=== PATIENT | female | born 1995 | race Caucasian/White ===

== ENCOUNTER 2019-11-18 10:20 | Outpatient (CLI) | payer OTHER, SELFPAY ==
[2019-11-18 10:35] VITALS: BP 123/73; PULSE 81; TEMP 37.1; O2SAT 98
[2019-11-18 10:37] VITALS: BP 123/73; PULSE 81
[2019-11-18 10:50] VITALS: BMI 29.3
[2019-11-18 11:49] LABS: ROM Internal Control Test YES-OK TO RESULT pt. (Internal QC); ROM Patient Test Negative (Negative)
--- NOTE | 2019-11-18 13:30 | OB.TRI.NOTE ---
History of Present Illness Date of Service: 11/18/19 Was patient seen by the physician?: No Reason For Visit: RULE OUT SROM Final GADIEL: 11/15/19 Gestational age: 40 Weeks and 3 Days Allergies No Known Allergies Allergy (Verified 11/18/19 10:51) Laboratory Studies: Laboratory Tests 11/18/19 Range/Units 10:50 Vag Amniotic Fld Detect Negative (Negative) Physical Exam Vitals: Vital Signs Temp Pulse BP Pulse Ox 98.8 F 81 123/73 H 98 11/18/19 10:35 11/18/19 10:37 11/18/19 10:37 11/18/19 10:35 NST - FHR Rate Baby A Baseline: 130 Variability:: Moderate Accelerations:: 15 x 15 Decelerations:: Variable NST Reactive:: Yes Uterine Activity:: Irregular Impression/Plan Reactive NST for false labor
== END 2019-11-18 12:25 | disposition home or self-care (01) ==
LOC: WPOUT 10:29 → WP 10:30
PROVIDERS: Visit Provider Obstetrics & Gynecology
DX: O47.03 False labor before 37 completed weeks of gestation, third trimester (principal); Z3A.40 40 weeks gestation of pregnancy
CPT/HCPCS: 59025; 59050; 84112; 99218; G0378

== ENCOUNTER 2019-11-20 11:35 | Inpatient (IN) | payer OTHER, SELFPAY ==
[2019-11-20] VITALS (52 sets, daily range): BP systolic 91–153; BP diastolic 42–89; PULSE 70–112; RESP 15–20; TEMP 36.6–37.4; O2SAT 84–100; BMI 28.3
[2019-11-20] MEDS: Lactated Ringers 1,000 ML 200 ML IV ×2 (12:00→17:01)
[2019-11-20 12:12] LABS: Absolute Lymphocyte Count 1.32 X10^3/uL (0.83-4.51); Absolute Neutrophil Count 9.5 X10^3/uL (2.0-7.7); Basophil# 0.04 X10^3/uL; Basophil% 0.3 % (0-1); Eosinophil# 0.14 X10^3/uL; Eosinophils% 1.2 % (0-5); Hematocrit 45.3 % (37-47); Hemoglobin 15.2 g/dL (12.0-15.0); Lymphocyte # 1.32 X10^3/ul (4.0); Lymphocyte % 11.2 % (19-41); Mean Corp Hgb Conc 33.6 g/dL (32-36); Mean Corpuscular Hgb 30.7 pg (27.0-32.0); Mean Corpuscular Volume 91.5 fL (81-99); Mean Platelet Vol. 11.9 fl (6.2-12.0); Monocyte# 0.71 X10^3/uL; NRBC Flagged by Analyzer 0 % (0-5); Neutrophil # 9.49 X10^3/uL (2.7-7.7); Neutrophil % 80.6 % (47-70); Platelet Count 171 K/mm3 (150-450); RBC Distribution Width CV 14.5 % (11.6-14.6); RBC Distribution Width SD 48.4 fl (35.1-43.9); Red Blood Count 4.95 M/mm3 (4.2-5.4); White Blood Count 11.8 K/mm3 (4.4-11.0)
--- NOTE | 2019-11-20 13:46 | HP.PCM_ITS ---
- Problem List (1) Spontaneous onset of labor Status: Acute (2) 40 weeks gestation of Status: Acute History Date of Admission: 11/20/19 Final GADIEL: 11/14/19 Final GADIEL Source: US <20 weeks Gestational age: 40 Weeks and 6 Days History of this : This is a 24 year-old, G [1], P [0], at 40.6 weeks gestation that was sent over to labor and delivery from office for spontaneous labor. Patient was checked in office and was found to be 8/90/-1 with bulging membranes. Allergies No Known Allergies Allergy (Verified 11/20/19 12:06) Home Medications: Home Medications L.acidoph,Paracasei, B.lactis [Probiotic] 1 ea PO DAILY 11/18/19 [place]-3 Fatty Acids/Fish Oil [[place] 3 1,000 mg Softgel] 1 ea PO DAILY 11/18/19 Vits [Prenatabs FA] 1 tab PO DAILY 11/18/19 Smoking Status: Never smoker Substance Use Type: Sleep Aides NST - FHR Rate Baby A Baseline: 135 Variability:: Moderate Accelerations:: 15 x 15 Decelerations:: None FHR Category:: Category I Uterine Activity:: Contractions every 2-5 minutes and palpate moderate History Past Pregnancies: Past Pregnancies Delivery Date Name GA/ Weeks Outcome Route Wt Infant Sex Labor Length Anesthesia Delivery Location Provider FOB Labs: B positive Rubella - Immune HB neg RPR- no reactive HIV negative GC/CT negative 1 hour GCT normal Expected Infant Delivery Method: Spontaneous Vaginal Review of Systems Constitutional: Denies: Anorexia Eyes: Denies: Blurred vision HEENT: Denies: Head Aches Cardiovascular: Denies: Chest Pain Respiratory: Denies: Cough, Shortness of Breath Gastrointestinal: Denies: Abdominal Pain Physical Exam Vitals: Vital Signs Temp Pulse BP 98.7 F 70 112/80 11/20/19 12:38 11/20/19 13:31 11/20/19 13:31 General: Alert, Cooperative Lungs: Normal air movement Abdomen: Soft, Non Tender Extremities:: No edema Neurological: Cranial nerves II-XII grossly intact Estimated gestational size: Appropriate for gestational size Presentation: Cephalic Cervix Dilation (cm): 8 Station: -1 - Bulging membranes Effacement (%): 90 Assessment/Plan All Active Problems Spontaneous onset of labor (Acute) 40 weeks gestation of (Acute) This is a 24 year-old, G [1], P [0], at 40.6 weeks gestational age in active labor. A: Active labor Category 1 tracing GBS negative P: Admit to labor and delivery Routine labs - GBS negatvie IV fluids per protocol Epidural for pain relief if desires A.R.O.M Declines LARC COVID 19 rapid screening to be completed Dr. Rockwell notified of plan of care and is collaborative physician
--- NOTE | 2019-11-20 14:02 | PCM.PN.BLA ---
Progress Note Patient seen at bedside. Breathing well through contractions. Discussed plan of care with her and . Several questions asked about timeline and what to expect. Receptive to education. Unsure if wants epidural at this time due to being 8cm. Patient wishes to have water broken at this time and consents to procedure. A.R.O.M for large amount of meconium fluid with particulate. CE- 8/90/-1 Category 1 tracing A/P 40.6 weeks gestation Spontaneous term labor GBS negative Continue present plan of care- anticipate . STROKE Vital Signs/Narrative: Vital Signs Temp Pulse BP 11/20/19 13:52 74 129/86 H 11/20/19 13:31 70 112/80 11/20/19 12:39 98.6 F 11/20/19 12:38 98.7 F
[2019-11-20] MEDS: Oxytocin 30 units/NS 500 ml 30 UNITS/500 ML IV.SOLN IV (14:50)
[2019-11-20] MEDS: Lactated Ringers 500 ML 999 ML IV (16:30)
[2019-11-20] MEDS: Sodium Citrate/Citric Acid 30 ML UDC PO (18:15)
--- NOTE | 2019-11-20 18:22 | PCM.PN.BLA ---
Progress Note pt seen at bedside and evaluated. Patient is 8 cm 80% effaced and -2 station and has been this exam since approximately 10:40 AM. We have done interventions with artificial rupture membranes, Pitocin, position changes most recently epidural with placement IUPC and all have failed to progress dilation. Patient and were counseled on primary for arrest of dilation 8 cm. After all their questions were answered they agreed to proceed with the surgery. Ancef 2 g and azithromycin 500 mg preoperative antibiotics were ordered. They were counseled on the risk benefits of performing the section including but not limited to bleeding, infection, injury to pelvic structures. OR team notified and mobilized. STROKE Vital Signs/Narrative: Vital Signs Pulse BP Pulse Ox 11/20/19 18:08 104 H 105/57 L 11/20/19 18:05 109 H 99 11/20/19 18:03 99 123/73 H 11/20/19 18:00 89 99 11/20/19 17:58 101 H 118/70 11/20/19 17:55 89 99 11/20/19 17:52 100 107/70 11/20/19 17:50 101 H 99 11/20/19 17:47 90 106/72 11/20/19 17:45 91 99 11/20/19 17:43 101 H 108/75 11/20/19 17:40 91 98 11/20/19 17:38 95 91 11/20/19 17:35 97 100 11/20/19 17:33 93 109/70 11/20/19 17:30 101 H 99 11/20/19 17:28 111 H 107/70 11/20/19 17:25 102 H 99 11/20/19 17:22 100 107/64 11/20/19 17:20 96 98 11/20/19 17:18 98 109/67 11/20/19 17:15 102 H 121/72 H 99 11/20/19 17:10 109 H 100 11/20/19 17:08 96 106/67 11/20/19 17:05 95 100 11/20/19 17:03 100 119/74 92 11/20/19 17:00 95 98 11/20/19 16:59 105 H 153/89 H 11/20/19 16:52 92 108/70 11/20/19 16:11 85 126/69 H 11/20/19 15:07 88 108/70
--- NOTE | 2019-11-20 18:26 | OP.PCM_ITS ---
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 She was prepped and draped in the normal sterile fashion. Anesthesia was found to be adequate. At this time a Pfannenstiel skin incision was made with a knife was carried down to the underlying layer of the fascia. The fascial incision was then extended laterally using curved Najera scissor. Attenion was then turned to the superior aspect of the fascial edge was grasped with 2 straight Amado clamps tented up and the rectus muscle dissected off sharply using curved Najera scissor. Attention was then turned to the inferior aspect where again [place] clamps were placed in the rectus muscles were tented up and the fascia was dissected off sharply using the curved Najera scissor. Rectus muscles were then in the midline bluntly and peritoneum was entered bluntly. Gentle opposing traction was placed. At this time the vesicouterine peritoneum was identified. Scalpel was used to make a uterine incision in a low transverse fashion. The uterus was then entered bluntly gentle opposing traction was placed to extend this incision. 's head was brought to the uterine incision was delivered atraumatically. Delayed cord clamping- Cord was clamped and cut infant was handed to the waiting nursery team. The Placenta was removed from the uterus. The uterus was then removed from the abdominal cavity. The uterus was cleared of all clots and debris using a lap. At this time the uterine incision was reapproximated using #1 Vicryl in a running locked fashion. Hemostasis was appreciated. Posterior cul-de-sac was then cleared of all clots and debris. Uterus was placed back in the abdominal cavity. Gutters were cleared of all clots and debris. Uterine incision was reevaluated and noted to be of excellent hemostasis. At this time the peritoneum was grasped with Kellys reapproximated using #2 Vicryl suture in a running fashion. Muscles then reapproximated using #2 Vicryl in a interrupted mattress suture fashion. Fascia was then reapproximated using #1 Vicryl in a running fashion. Subcu layer was reapproximated with #2 0 plain gut suture in an interrupted fashion. Subcu layer was closed using 4-0 Monocryl in a Tristen needle in a subcu fashion. Dry sterile dressing was applied. Instrument lap needle count correct ?2. Anticipated normal postoperative course. Amniotic Membrane Rupture Type: Artificial Amniotic Fluid Description: Thick meconium Placenta Disposition: [facility] Drain: Lora to straight drain Cord Entanglement: None Cord Vessel Description: 3 Vessels Esitmated Blood Loss (ml): 750 Gender: Female (1 minute): 8 (5 minute): 8 Delayed cord clamping: Yes Antibiotic Given: Ancef 2 grams IV x1, Zithromax 500 mg/5 mL X1 Pt instructed on risks of surgery: Bleeding, Anesthesia Risks, Infection, Injury to surrounding structure(s) including bowel and bladder - Admit VTE Documentation VTE Present on Admission: Yes VTE Mechan Device Prophylaxis: SCD's VTE Pharm Prophylaxis ordered?: No
[2019-11-20] MEDS: Cefazolin 2 GM in 0.9% Normal Saline 100 ML IV (18:40)
[2019-11-20] MEDS: Methylergonovine 0.2 MG/ML Ampul IM (19:32)
[2019-11-20] MEDS: Oxytocin 30 units/NS 500 ml 30 UNITS/500 ML IV.SOLN 167 UNITS IV (19:35)
[2019-11-20] MEDS: DiphenhydrAMINE 25 MG Capsule PO (21:31)
[2019-11-20] MEDS: Lactated Ringers 1,000 ML 100 ML IV (22:47)
[2019-11-21] VITALS (15 sets, daily range): BP systolic 102–114; BP diastolic 49–76; PULSE 94–196; RESP 16–20; TEMP 36.2–37; O2SAT 97–98
[2019-11-21] MEDS: Ketorolac 30 MG/ML Syringe IV ×4 (01:22→18:32)
[2019-11-21] MEDS: DiphenhydrAMINE 25 MG Capsule PO ×2 (04:03→10:23)
[2019-11-21 06:11] LABS: Hematocrit 29.2 % (37-47); Hemoglobin 9.6 g/dL (12.0-15.0); Mean Corp Hgb Conc 32.9 g/dL (32-36); Mean Corpuscular Hgb 30.6 pg (27.0-32.0); Mean Platelet Vol. 11.5 fl (6.2-12.0); Platelet Count 141 K/mm3 (150-450); RBC Distribution Width CV 14.4 % (11.6-14.6); Red Blood Count 3.14 M/mm3 (4.2-5.4); White Blood Count 11.3 K/mm3 (4.4-11.0)
--- NOTE | 2019-11-21 08:02 | PN.OBGYN_ITS ---
Patient Problems: Active and Suspected Problems Spontaneous onset of labor (Acute) 40 weeks gestation of (Acute) Subjective: Seen at bedside, doing well. Breast-feeding going well. Patient reports pain is controlled. Was up to walk a little bit this morning mild dizziness. She denies any chest pain, shortness of breath. No dizziness while laying in bed. Tolerating crackers - Physical Exam Vitals/I&O's: Vital Signs Temp Pulse Resp BP Pulse Ox 98.4 F 94 18 102/66 98 11/21/19 03:51 11/21/19 05:45 11/21/19 05:45 11/21/19 03:51 11/21/19 05:45 Oxygen Delivery Method Room Air Weight: 63.503 kg Body Mass Index (BMI) 28.3 Intake and Output for Last 24 Hours 11/19/19 11/20/19 11/21/19 23:59 23:59 23:59 Intake Total 2918.34 / 2918.34 Output Total 400 / 400 400 / 400 Balance 2518.34 / 2518.34 -400 / -400 General: Alert, Oriented x3 Abdomen: Soft, Non-Distended, - - fundus firm, dressing dry and intact Neurological: Cranial nerves II-XII grossly intact Laboratory Results 11/20/19 12:00: WBC 11.8 H, RBC 4.95, Hgb 15.2 H, Hct 45.3, MCV 91.5, MCH 30.7, MCHC 33.6, RDW Std Deviation 48.4 H, RDW Coeff of Filemon 14.5, Plt Count 171, MPV 11.9, Immature Gran % (Auto) 0.700, Neut % (Auto) 80.6 H, Lymph % (Auto) 11.2 L, Hendricks % (Auto) 6.0, Eos % (Auto) 1.2, Baso % (Auto) 0.3, Absolute Neuts (auto) 9.5 H, Absolute Lymphs (auto) 1.32, Nucleated RBC % 0 11/20/19 12:00: Blood Type B POSITIVE, Antibody Screen NEGATIVE 11/20/19 12:50: COVID-19 (KRISTEN) Not Detected 11/21/19 05:50: WBC 11.3 H, RBC 3.14 L, Hgb 9.6 L, Hct 29.2 L, MCV 93.0, MCH 30.6, MCHC 32.9, RDW Std Deviation 49.0 H, RDW Coeff of Filemon 14.4, Plt Count 141 L, MPV 11.5 Current Medications Acetaminophen (Tylenol) 1,000 mg PO Q8H PRN PRN Reason: Pain Score 1-3/10 Bisacodyl (Dulcolax) 10 mg RECTAL UD PRN PRN Reason: If no BM Diphenhydramine HCl (Benadryl) 25 mg PO Q6H PRN PRN PRN Reason: ITCHING Stop: 11/21/19 21:07 Last Admin: 11/21/19 04:03 Dose: 25 mg Documented by: Hydrocortisone (Hytone) 1 applic TOPICAL TID PRN PRN; Protocol PRN Reason: Discomfort Lactated Ringer's () 1,000 mls @ 100 mls/hr IV .Q10H [facility] Last Admin: 11/20/19 22:47 Dose: 100 mls/hr Documented by: Naloxone HCl 4 mg/ Dextrose 504 mls @ 0 mls/hr IV .Q0M PRN; Protocol PRN Reason: Respiratory depression Ibuprofen (Motrin) 600 mg PO Q6H PRN PRN PRN Reason: Pain Score 1-3/10 Ketorolac Tromethamine (Toradol (Bkc)) 30 mg IV Q6H [facility] Stop: 11/22/19 19:01 Last Admin: 11/21/19 06:58 Dose: 30 mg Documented by: Methylergonovine Maleate (Methergine) 0.2 mg IM X1 PRN PRN Reason: Uterine Atony Last Admin: 11/20/19 19:32 Dose: 0.2 mg Documented by: Nalbuphine HCl (Nubain) 5 mg IV Q3H PRN PRN PRN Reason: ITCHING Stop: 11/21/19 21:07 Naloxone HCl (Narcan) 0.02 mg IV Q1M PRN PRN Reason: RR <10 and pt unresponsive Ondansetron HCl (Zofran) 4 mg IV Q4H PRN PRN PRN Reason: Nausea Oxycodone HCl (Oxyir) 5 - 10 mg PO Q4H PRN PRN PRN Reason: Pain Score 4-10/10 Prochlorperazine Edisylate (Compazine Iv) 10 mg IV Q6H PRN PRN PRN Reason: NAUSEA Senna/Docusate Sodium (Senokot-S, Marge-Colace) 0 tablet PO DAILY PRN PRN Reason: Constipation Simethicone (Mylicon) 80 mg PO PCHS PRN PRN Reason: Indigestion/stomach pain Sodium Chloride () 5 - 15 ml IV UD PRN PRN Reason: SALINE FLUSH Medical Necessity - Tobacco Use Smoking Status: Never smoker Assessment/Plan All Active Problems Spontaneous onset of labor (Acute) 40 weeks gestation of (Acute) POD#1, acute blood loss anemia- (likely starting hg was hemoconcentrated) 1) Recheck CBC today at 1pm 2) Ambulation 3) voiding trial 4) pain mgmt
[2019-11-21] MEDS: 0.9% Saline Lock 10 ML Syringe IV ×2 (12:39→18:32)
[2019-11-21] MEDS: Senna/Docusate Sodium 1 Tablet PO (12:40)
[2019-11-21 13:53] LABS: Hematocrit 30.6 % (37-47); Hemoglobin 9.8 g/dL (12.0-15.0); Mean Corpuscular Hgb 30.2 pg (27.0-32.0); Mean Corpuscular Volume 94.4 fL (81-99); Mean Platelet Vol. 11.4 fl (6.2-12.0); Platelet Count 161 K/mm3 (150-450); RBC Distribution Width CV 14.6 % (11.6-14.6); RBC Distribution Width SD 50.7 fl (35.1-43.9); Red Blood Count 3.24 M/mm3 (4.2-5.4); White Blood Count 10.7 K/mm3 (4.4-11.0)
[2019-11-22] MEDS: Ketorolac 30 MG/ML Syringe IV ×4 (01:05→19:11)
[2019-11-22] MEDS: 0.9% Saline Lock 10 ML Syringe IV ×3 (01:06→12:59)
[2019-11-22 01:07] VITALS: BP 114/71; PULSE 98; RESP 16; TEMP 36.9
[2019-11-22 08:06] VITALS: BP 113/78; PULSE 92
[2019-11-22 08:15] VITALS: BP 113/78; PULSE 92; RESP 16; TEMP 36.7; O2SAT 99
--- NOTE | 2019-11-22 08:15 | PCM.PN.OB ---
Patient Problems: Active and Suspected Problems Spontaneous onset of labor (Acute) 40 weeks gestation of (Acute) Subjective: Patient seen at bedside. Up ambulating in room. Reports feeling sore but controlled with pain medications. Lochia decreasing. going well. No dizziness today. Appetite has returned. Desires to stay until tomorrow. - Physical Exam Vitals/I&O's: Vital Signs Temp Pulse Resp BP Pulse Ox 98.5 F 92 16 113/78 97 11/22/19 01:07 11/22/19 08:06 11/22/19 01:07 11/22/19 08:06 11/21/19 12:42 Oxygen Delivery Method Room Air Weight: 140 lb Body Mass Index (BMI) 28.3 Intake and Output for Last 24 Hours 11/20/19 11/21/19 11/22/19 23:59 23:59 23:59 Intake Total 2918.34 / 2918.34 946.67 / 946.67 Output Total 400 / 400 1300 / 1300 Balance 2518.34 / 2518.34 -353.33 / -353.33 General: Alert, Cooperative HEENT: Atraumatic Neck: Supple Lungs: Normal air movement Abdomen: Soft, Passing Flatus Extremities: No Calf Tenderness Skin: No rashes Neurological: Cranial nerves II-XII grossly intact Psych/Mental Status: Normal Affect, Appropriate - Incision dressing dry and intact Laboratory Results 11/21/19 13:30: WBC 10.7, RBC 3.24 L, Hgb 9.8 L, Hct 30.6 L, MCV 94.4, MCH 30.2, MCHC 32.0, RDW Std Deviation 50.7 H, RDW Coeff of Filemon 14.6, Plt Count 161, MPV 11.4 Current Medications Acetaminophen (Tylenol) 1,000 mg PO Q8H PRN PRN Reason: Pain Score 1-3/10 Bisacodyl (Dulcolax) 10 mg RECTAL UD PRN PRN Reason: If no BM Hydrocortisone (Hytone) 1 applic TOPICAL TID PRN PRN; Protocol PRN Reason: Discomfort Naloxone HCl 4 mg/ Dextrose 504 mls @ 0 mls/hr IV .Q0M PRN; Protocol PRN Reason: Respiratory depression Ibuprofen (Motrin) 600 mg PO Q6H PRN PRN PRN Reason: Pain Score 1-3/10 Ketorolac Tromethamine (Toradol (Bkc)) 30 mg IV Q6H [facility] Stop: 11/22/19 19:01 Last Admin: 11/22/19 07:01 Dose: 30 mg Documented by: Methylergonovine Maleate (Methergine) 0.2 mg IM X1 PRN PRN Reason: Uterine Atony Last Admin: 11/20/19 19:32 Dose: 0.2 mg Documented by: Naloxone HCl (Narcan) 0.02 mg IV Q1M PRN PRN Reason: RR <10 and pt unresponsive Ondansetron HCl (Zofran) 4 mg IV Q4H PRN PRN PRN Reason: Nausea Oxycodone HCl (Oxyir) 5 - 10 mg PO Q4H PRN PRN PRN Reason: Pain Score 4-10/10 Prochlorperazine Edisylate (Compazine Iv) 10 mg IV Q6H PRN PRN PRN Reason: NAUSEA Senna/Docusate Sodium (Senokot-S, Marge-Colace) 0 tablet PO DAILY PRN PRN Reason: Constipation Last Admin: 11/21/19 12:40 Dose: 1 tablet Documented by: Simethicone (Mylicon) 80 mg PO PCHS PRN PRN Reason: Indigestion/stomach pain Last Admin: 11/21/19 23:01 Dose: 80 mg Documented by: Sodium Chloride () 5 - 15 ml IV UD PRN PRN Reason: SALINE FLUSH Last Admin: 11/22/19 07:29 Dose: 10 ml Documented by: Medical Necessity - Tobacco Use Smoking Status: Never smoker Assessment/Plan All Active Problems Spontaneous onset of labor (Acute) 40 weeks gestation of (Acute) Post operative day 2 for primary c/s Repeat Hgb. was 9.8 Pain management Ambulation Anticipate D/C home tomorrow
[2019-11-22 13:00] VITALS: BP 123/65; PULSE 103; RESP 16; TEMP 36.8
[2019-11-22 13:05] VITALS: BP 123/65; PULSE 103
[2019-11-22 21:33] VITALS: BP 108/62; PULSE 87; RESP 18; TEMP 36.9
[2019-11-23] MEDS: Ibuprofen 600 MG Tablet PO ×3 (01:35→14:06)
[2019-11-23 01:39] VITALS: BP 102/62; PULSE 81
[2019-11-23 02:01] VITALS: BP 102/62; PULSE 81; RESP 18; TEMP 36.9
[2019-11-23 07:57] VITALS: BP 114/83; PULSE 86
[2019-11-23 08:00] VITALS: BP 114/83; PULSE 84; RESP 15; TEMP 36.4; O2SAT 98
--- NOTE | 2019-11-23 08:43 | PCM.PN.OB ---
Patient Problems: Active and Suspected Problems Spontaneous onset of labor (Acute) 40 weeks gestation of (Acute) Subjective: Doing well per nursing and patient. Ambulating and taking PO without difficulty. Voiding and passing flatus. Pain controlled. without difficulty. Planning D/C home today. - Physical Exam Vitals/I&O's: Vital Signs Temp Pulse Resp BP Pulse Ox 97.5 F L 84 15 114/83 H 98 11/23/19 08:00 11/23/19 08:00 11/23/19 08:00 11/23/19 08:00 11/23/19 08:00 Oxygen Delivery Method Room Air Weight: 140 lb Body Mass Index (BMI) 28.3 Intake and Output for Last 24 Hours 11/21/19 11/22/19 11/23/19 23:59 23:59 23:59 Intake Total 946.67 / 946.67 Output Total 1300 / 1300 Balance -353.33 / -353.33 General: Alert, Oriented x3, Cooperative HEENT: Atraumatic, Normocephalic Neck: Trachea Midline Lungs: Clear to auscultation, Normal air movement, No rhonchi, No wheeze Cardiovascular: Regular rate, Regular Rhythm, No murmurs Abdomen: Bowel Sounds Present - fundus firm 2 below U, dressing dry and intact Extremities: Edema - +1 BLE ankles. Joni's negative Psych/Mental Status: Normal Affect, Appropriate Current Medications Acetaminophen (Tylenol) 1,000 mg PO Q8H PRN PRN Reason: Pain Score 1-3/10 Bisacodyl (Dulcolax) 10 mg RECTAL UD PRN PRN Reason: If no BM Hydrocortisone (Hytone) 1 applic TOPICAL TID PRN PRN; Protocol PRN Reason: Discomfort Naloxone HCl 4 mg/ Dextrose 504 mls @ 0 mls/hr IV .Q0M PRN; Protocol PRN Reason: Respiratory depression Ibuprofen (Motrin) 600 mg PO Q6H PRN PRN PRN Reason: Pain Score 1-3/10 Last Admin: 11/23/19 07:58 Dose: 600 mg Documented by: Methylergonovine Maleate (Methergine) 0.2 mg IM X1 PRN PRN Reason: Uterine Atony Last Admin: 11/20/19 19:32 Dose: 0.2 mg Documented by: Naloxone HCl (Narcan) 0.02 mg IV Q1M PRN PRN Reason: RR <10 and pt unresponsive Ondansetron HCl (Zofran) 4 mg IV Q4H PRN PRN PRN Reason: Nausea Oxycodone HCl (Oxyir) 5 - 10 mg PO Q4H PRN PRN PRN Reason: Pain Score 4-10/10 Prochlorperazine Edisylate (Compazine Iv) 10 mg IV Q6H PRN PRN PRN Reason: NAUSEA Senna/Docusate Sodium (Senokot-S, Marge-Colace) 0 tablet PO DAILY PRN PRN Reason: Constipation Last Admin: 11/21/19 12:40 Dose: 1 tablet Documented by: Simethicone (Mylicon) 80 mg PO PCHS PRN PRN Reason: Indigestion/stomach pain Last Admin: 11/22/19 21:40 Dose: 80 mg Documented by: Sodium Chloride () 5 - 15 ml IV UD PRN PRN Reason: SALINE FLUSH Last Admin: 11/22/19 12:59 Dose: 10 ml Documented by: Medical Necessity - Tobacco Use Smoking Status: Never smoker Assessment/Plan All Active Problems Spontaneous onset of labor (Acute) 40 weeks gestation of (Acute) A:POD #2 Primary Section Acute blood loss anemia P: 1. Planning D/C home today. Routine post operative and instructions reviewed 2) Follow up in one week for incision check and 6 week for visit. 3) Pain medication to pharmacy 4) Ferrous sulfate 325mg PO once daily for anemia
--- NOTE | 2019-11-23 08:52 | DCINST_ITS ---
Discharge Diet: No Restrictions Discharge Activity: May Not Drive - for 2 weeks or while taking narcotic pain meds., May Shower, May Take a Tub Bath - in 7 days. May resume sexual activity in: 4-6 weeks Weight Bearing Status: Full weight bearing Lifting Restrictions: 20 pounds Additional Activity Instructions:: Nothing in the vagina for 4-6 weeks. You may return to work/school in 6 weeks. Call your doctor if your incision/area has: Continuous Slow Oozing, Sudden Increased Bleeding, Increased Pain/ Swelling, Increased Redness, Foul Smelling Discharge Call your doctor if you observe: Fever of 101 or Higher, Inability to urinate, Inability to have a bowel movement, Using more than one pad per hour, Chest pain, Increased palpitations (irregular heartbeat), Calf discomfort, Uncont rolled pain Suture Line Care: Avoid Pulling/Pushing, Avoid Pinching/Bending Cleanse incision/area with: Keep Dressing Clean & Dry Additional Instructions: If you experience any of the following, contact your healthcare provider. * Bleeding that soaks a pad every hour for 2 hours * Fever 100.4 or higher * Unrelieved incision or abdominal pain * Swelling, redness, discharge or bleeding from your incision or episiotomy site * Your incision begins to separate * Problems urinating (including inability to urinate or burning while urinating). * Visual changes * Severe headache * Flu-like symptoms * Pain or redness in one of both of your breasts * Pain, warmth, tenderness or swelling in your legs, especially the calf area * Frequent nausea and vomiting * Symptoms of depression or anxiety If you experience any of the following, call 911 or go to the nearest Emergency Room. * Chest pain * Problems breathing * Seizure activity * Partial or complete paralysis of a body part, slurred speech, weakness or drooping of the face, or a sudden inability to walk or hold your balance Allergies/Adverse Reactions: Allergies No Known Allergies Allergy (Verified 11/20/19 12:06) Medications to take at Discharge L.acidoph,Paracasei, B.lactis [Probiotic] 1 ea PO DAILY 11/18/19 Sells-3 Fatty Acids/Fish Oil [Sells 3 1,000 mg Softgel] 1 ea PO DAILY 11/18/19 Vits [Prenatabs FA ] 1 tab PO DAILY 11/18/19 Ferrous Sulfate 325 mg PO DAILY #30 tab 11/23/19 Oxycodone HCl/Acetaminophen [Percocet 5/325] 1 - 2 tablet PO Q4H PRN PRN 7 Days #20 tablet 11/23/19 The following prescriptions were given: Ferrous Sulfate 325 mg PO DAILY #30 tab Transmission Status: Pending to [facility] Oxycodone HCl/Acetaminophen [Percocet 5/325] 1 - 2 tablet PO Q4H PRN PRN 7 Days #20 tablet PRN Reason: Pain Transmission Status: Sent to [facility] Follow-Up: Call to make an appointment with your doctor for an incision check in 1-2 weeks. You will also need a 6 week post- follow up appointment. Test results from this visit will be discussed in further detail at your follow- up appointment, if applicable. Primary Care Physician: Care Physician,No Primary [Primary Care Provider] -
[2019-11-23] MEDS: Acetaminophen 500 MG Tablet 1000 MG PO (11:14)
[2019-11-23 14:32] VITALS: BP 117/79; PULSE 96
[2019-11-23 16:09] VITALS: BP 117/76; PULSE 96; RESP 16; TEMP 36.4
== END 2019-11-23 15:50 | disposition home or self-care (01) | DRG 787 ==
PROVIDERS: Advanced Practice Midwife; Admitting Provider Obstetrics & Gynecology; Visit Provider Obstetrics & Gynecology
DX: O48.0 Post-term pregnancy (principal); O62.0 Primary inadequate contractions; O77.0 Labor and delivery complicated by meconium in amniotic fluid; D62 Acute posthemorrhagic anemia; O90.81 Anemia of the puerperium; Z3A.40 40 weeks gestation of pregnancy; Z37.0 Single live birth
CPT/HCPCS: 36415; 59025; 59050; 85025; 85027; 86850; 86900; 86901; 87635; 94762; 94799; 99218; J7120; A4216; G0378; J2405; U0003

== ENCOUNTER → 2020-05-19 10:04 | Outpatient (CLI) | payer OTHER, SELFPAY ==
[2019-11-20 15:09] VITALS: BMI 28.3
--- NOTE | 2020-05-19 16:32 | STRESSREP ---
Stress Test Report Exercise stress test. 25-year-old lady with a history of chest pain. Resting EKG demonstrates normal sinus rhythm with a rate of 70 bpm normal intervals are noted resting blood pressure is 92/58 mmHg. The patient exercised according to regular Jaylon protocol for a total duration of 8 minutes and 28 seconds. The maximum heart rate attained was 164 bpm which was 83% of max impacted heart rate. Patient completed 2 minutes and 28 seconds into stage III of the Jaylon protocol. At rest there were no ST or T wave changes noted suggest ischemia peak exercise upsloping ST changes only were noted with no meet the criteria for ischemia. No clinical angina was noted no arrhythmias were noted. The test was terminated due to attainment of target heart rate. At peak exercise patient remarked that she felt she was going to pass out. This recovered and the symptoms dissipated immediately on termination of the testing. Conclusion: Exercise stress test with no EKG criteria for ischemia at a high workload. Good functional capacity. No arrhythmias noted.
== END ==
PROVIDERS: PCP Nurse Practitioner Family; Referring Provider Nurse Practitioner Family; Visit Provider Nurse Practitioner Family
DX: I47.1 Supraventricular tachycardia (principal); R55 Syncope and collapse; R07.9 Chest pain, unspecified
CPT/HCPCS: 93017

== ENCOUNTER 2024-08-06 09:58 | Inpatient (IN) | payer BC, SELFPAY ==
[2024-08-06] VITALS (15 sets, daily range): BP systolic 96–123; BP diastolic 58–102; PULSE 80–96; RESP 16–18; TEMP 36.2–37.1; O2SAT 97–99; BMI 28.6
[2024-08-06] MEDS: Lactated Ringers 1,000 ML 999 ML IV (10:20)
[2024-08-06 10:39] LABS: Absolute Lymphocyte Count 1.23 X10^3/uL (0.83-4.51); Absolute Neutrophil Count 7.6 X10^3/uL (2.0-7.7); Basophil# 0.03 X10^3/uL; Basophil% 0.3 % (0-1); Eosinophil# 0.09 X10^3/uL; Eosinophils% 0.9 % (0-5); Hematocrit 40.6 % (37-47); Hemoglobin 13.8 g/dL (12.0-15.0); Lymphocyte # 1.23 X10^3/ul (0.83-4.51); Lymphocyte % 12.7 % (19-41); Mean Corpuscular Hgb 31.5 pg (27.0-32.0); Mean Corpuscular Volume 92.7 fL (81-99); Monocyte# 0.58 X10^3/uL; NRBC Flagged by Analyzer 0 % (0-5); Neutrophil % 78.2 % (47-70); Platelet Count 141 K/mm3 (150-450); RBC Distribution Width CV 12.8 % (11.6-14.6); RBC Distribution Width SD 43.8 fl (35.1-43.9); Red Blood Count 4.38 M/mm3 (4.2-5.4); White Blood Count 9.7 K/mm3 (4.4-11.0)
[2024-08-06 11:10] LABS: Syphilis Antibodies Non-reactive
[2024-08-06] MEDS: Acetaminophen 500 MG Tablet 1000 MG PO ×3 (11:10→23:27)
[2024-08-06] MEDS: Sodium Citrate/Citric Acid 30 ML UDC PO (11:41)
--- NOTE | 2024-08-06 11:46 | PCM.HP.BLA ---
History and Physical Date of Admission: 08/06/24 PROBLEM: 39 week gestation, history prior section DIAGNOSIS: Repeat section PAST SURGICAL HISTORY: PAST SURGICAL HISTORY PAST SURGICAL HISTORY Procedure Laterality Date ? SECTION HX 11/20/2019 C/S low transverse ? PAST SURGICAL HISTORY OF I&D right ankle abcess PAST MEDICAL HISTORY: PAST MEDICAL HISTORY No past medical history on file. SUBJECTIVE: See quick note SOCIAL HISTORY: SOCIAL HISTORY Social History Tobacco Use ? Smoking status: Never ? Smokeless tobacco: Never Vaping Use ? Vaping status: Never Used Substance Use Topics ? Alcohol use: Not Currently Comment: once a year ? Drug use: Never ALLERGIESExpand by Default ALLERGIES No Known Allergies Current Outpatient Medications on File Prior to Visit Medication Sig ? Breast Pump Use as directed ? docosahexaenoic acid/epa (FISH OIL ORAL) Take by mouth. ? aspirin 81 mg cap Take 81 mg by mouth once daily. Starting at 12 weeks ? mecobalamin (B12 ACTIVE ORAL) Take by mouth. ? famotidine (PEPCID) 20 mg tablet Take 1 tablet by mouth two times a day. ? Mwfubmee-Eh-Enc-Fe-FA ( VITAMIN) tab Take 1 tablet by mouth once daily. ? Lactobacillus acidophilus (ACIDOPHILUS ORAL) Take 1 capsule by mouth once daily. No current facility-administered medications on file prior to visit. OBJECTIVE: VITALS: BP 100/62 Wt 62.6 kg (138 lb) LMP 11/13/2023 (Within Days) BMI 28.01 kg/m? HEENT: Normocephalic, atraumatic, Mucus membranes moist without lesions. SKIN: No lesions. CHEST: No increased respiratory effort. BACK: Nontender. ABDOMEN: Soft, non-tender, non-distended, gravid. LOWER EXTREMITIES: There was no pitting edema, no palpable cords and no skin changes. ASSESSMENT: pre op, repeat section PLAN: 1) Discussed r/b/a repeat section. The rationale for the proposed surgery was discussed in addition to risks, benefits, and alternatives. General pre- and post-operative care was reviewed. Questions were answered. After discussion, the patient indicated a desire to proceed with the planned surgery. Shriley Mcdonough, DO Assessment & Plan Assessment/Plan (1) 39 weeks gestation of : (2) Previous section:
[2024-08-06] MEDS: Cefazolin 2 GM in Syringe IV (12:00)
--- NOTE | 2024-08-06 12:24 | PLAC_PTH ---
PATIENT: ELENA SYED LOC: [facility] U#:[id number] AGE/SX: 29/F ROOM: WP006 RE08/06/[address]: Dr. Shirley Mcdonough DO : 1995 BED: 1 DIS: 08/08/2024 SPEC #: [id number] RECD: 08/06/24 14:50 STATUS: LUCIE SHER #: [id number] FAN: 08/06/24 12:[address]: Shirley Mcdonough DEPT: SURGICAL PATHOLOGY RECD BY: Melinda Palacio ENTERED: 08/07/24 09:37 SP TYPE: PLACENTA OTHR DR: Ca Reed, SKIP TRACERSole Tissues: Placenta, NOS Procedures: Surgery Specimen Level V HEADER OPERATION: section PRE-OP DIAGNOSIS: Fluid TISSUE SUBMITTED: Placenta MICROSCOPIC DIAGNOSIS Placenta: Placental disc - third trimester placenta (716 gm). Membranes - Focal minimal acute chorioamnionitis. - Pigment laden macrophages consistent with meconium staining. Umbilical cord - three blood vessels and focal minimal acute funisitis. SJ: 08/09/2024 MICROSCOPIC DESCRIPTION Slides are reviewed. GROSS DESCRIPTION SPECIMEN: PLACENTA / CLINICAL INFORMATION: A. Weight: 3.695 kg B. Gestational Age: 40 weeks & 6 days C. Sex: Female PLACENTAL WEIGHT (POST FIXATION): 716 gm PLACENTAL DIMENSIONS: 20 x 18 x 3.5 cm PLACENTAL SHAPE: Usual ovoid PLACENTAL WEIGHT FOR GESTATIONAL AGE: Over 99th percentile MEMBRANES - Present A. Insertion: Marginal B. Site of rupture from edge: Membranes are fragmented. Distance of rupture cannot be assessed. A detached fragment of membrane is also noted in the container. C. Color of membrane: Foss-mucoidy D. Abnormalities: None UMBILICAL CORD - Present A. Color: Foss-ohara B. Insertion: Paracentral C. Length: 40 cm D. Diameter: 1.4 cm E. Number of vessels: Three F. Abnormalities: None PLACENTAL DISC - Present A. Color of surface: Foss-ohara B. surface abnormalities: None C. Maternal cotyledons: Intact with minimal tears D. Attached retro placental clot: No clot E. Cut surface: Dark red and spongy F. Lesions: None G. Separate clot: Absent SECTIONS SUBMITTED: (6 cassettes) 1. Membrane roll 2. Cord, maternal end 3. Cord, end 4. Placental disc, and maternal surfaces 5. Placental disc, and maternal surfaces 6. Placental disc, and maternal surfaces SJ.mr 08/08/2024 TC:2 CPT: 71525
--- NOTE | 2024-08-06 13:21 | OP.PCM_ITS ---
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 She was prepped and draped in the dorsal supine position with leftward tilt. A Pfannenstiel skin incision was made with a scalpel and carried down to the underlying layer of fascia. The fascia was incised in midline. The fascia was dense and adhered to the rectus muscles. The fascial incision was dissected laterally using Najera scissors. The fascia was tented off the rectus muscles and dissected off the rectus muscles in the cephalad direction using sharp dissection. The rectus muscles were in the midline bluntly. 2 Kellys were placed on the peritoneum and it was slowly entered using sharp dissection with good visualization of the bladder. While dissecting down through the peritoneum, omentum and uterus was noted. A finger was used to palpate and it was noted that the omentum and peritoneum was completely adhered to the anterior surface of the uterus cephalad. There was some free space inferiorly and my finger was able to be swept across the anterior surface of the uterus inferiorly, and it was confirmed that we were intraperitoneal. The peritoneal incision was extended laterally using the Bovie cautery. Traction was placed laterally to extend the peritoneal incision incision. A bladder flap was created using Metzenbaum scissors to bring the bladder down, and a bladder blade was inserted. There was a window along the anterior surface of the uterus that was free of adhesions. A scalpel was used to create an incision to enter into the uterus at this space free of adhesions. The uterine incision was extended with cephalad and caudad traction. Allis clamps were used to rupture the membranes for thick purulent fluid. The head of the infant was elevated out of the pelvis and flexed. Using fundal pressure the head was delivered. A loose nuchal cord x 1 was reduced. The shoulders and body of the infant were delivered with fundal pressure without traction, force, or delay. A vigorous viable female was delivered. The cord was clamped and cut immediately and the infant was handed off to the waiting nursery staff. The placenta was removed with manual extraction. The uterus was cleared of all clot and debris. The uterus was unable to be exteriorized due to adhesive disease. The bilateral adnexa were unable to be visualized due to the adhesive disease. The uterine incision was closed with 1-0 Vicryl in a running locked fashion. It was felt that the uterine incision was at the low-mid uterus while closing Several additional [id number] sutures were placed for hemostasis. Hemablast was placed over the hysterotomy. The omentum was inspected and made hemostatic with the Bovie cautery, and Hemablast was placed over the omentum. The rectus muscles were inspected and made hemostatic with the Bovie cautery. Junaid was placed over the rectus muscles. The fascia was closed with STRATAFIX in a running fashion. The subcutaneous space was irrigated and made hemostatic with the Bovie cautery. Subcutaneous space was reapproximated 3-0 Vicryl in a r unning fashion. 4 Monocryl was used in a subcuticular fashion to close the skin. A dressing was placed. Instrument, sharp and sponge counts were correct x 2 the patient was taken to the recovery in stable condition. Surgical Findings: Significant adhesive disease. Bladder adhered to the anterior surface of the uterus. Omentum and peritoneum completely adhered to the anterior surface of the uterus, and unable to assess bilateral adnexa due to extensive adhesive disease. Purulent appearing amniotic fluid without an odor. Normal appearing placenta that was sent to pathology for review. VFI weighing 8 lb 2 oz with Apgars 8, 9. Discussed with patient if she did have a future , section would need to be scheduled with two physicians and possibly general surgery available as well. Complications Complications: No Admit VTE Documentation VTE Present on Admission: No VTE Mechan Device Prophylaxis: SCD's
[2024-08-06] MEDS: Oxytocin 15 Units/NS 250ml 15 UNITS/250 ML IV.SOLN 83 UNITS IV (13:40)
[2024-08-06] MEDS: Ketorolac 30 MG/ML Syringe IV ×2 (14:32→20:33)
[2024-08-06 14:54] LABS: Pathology Specimen OB SEE PATHOLOGY REPORT
[2024-08-06] MEDS: 0.9% Saline Lock 10 ML Syringe IV (20:33)
[2024-08-07] MEDS: Ketorolac 30 MG/ML Syringe IV ×2 (02:45→09:11)
[2024-08-07] MEDS: 0.9% Saline Lock 10 ML Syringe IV ×2 (02:46→09:11)
[2024-08-07 03:10] VITALS: BP 110/78; PULSE 75; RESP 16; TEMP 36.6; O2SAT 100
[2024-08-07] MEDS: Acetaminophen 500 MG Tablet 1000 MG PO ×3 (06:31→18:36)
[2024-08-07 07:05] LABS: Hematocrit 36.5 % (37-47); Hemoglobin 12.1 g/dL (12.0-15.0); Mean Corp Hgb Conc 33.2 g/dL (32-36); Mean Corpuscular Hgb 31.3 pg (27.0-32.0); Mean Corpuscular Volume 94.3 fL (81-99); Mean Platelet Vol. 10.8 fl (6.2-12.0); Platelet Count 142 K/mm3 (150-450); RBC Distribution Width CV 12.9 % (11.6-14.6); RBC Distribution Width SD 44.5 fl (35.1-43.9); Red Blood Count 3.87 M/mm3 (4.2-5.4); White Blood Count 9.6 K/mm3 (4.4-11.0)
--- NOTE | 2024-08-07 07:09 | PCM.PN.OB ---
Subjective Subjective The patient is doing well. Pain is controlled. She is ambulating voiding without difficulty. She is tolerating a diet without nausea or vomiting. She denies lightheadedness, dizziness, chest pain, shortness of breath, leg pain. Lochia is normal. She is breast-feeding without complaints. Objective Data Objective Data Vital Signs: Vital Signs Temp Pulse Resp BP Pulse Ox O2 Del Method 97.8 F 75 16 110/78 100 Room Air 08/07/24 03:10 08/07/24 03:10 08/07/24 03:10 08/07/24 03:10 08/07/24 03:10 08/07/24 03:10 Oxygen Delivery Method Room Air Weight: 142 lb Body Mass Index (BMI) 28.6 Intake & Output: Intake and Output for Last 24 Hours 08/05/24 08/06/24 08/07/24 23:59 23:59 23:59 Intake Total 1270 / 1270 Output Total 1999 / 1999 400 / 400 Balance -730 / -730 -400 / -400 Lab / Micro Data 08/07/24 06:35 Labs: Laboratory Results - last 24 hr 08/06/24 10:20: WBC 9.7, RBC 4.38, Hgb 13.8, Hct 40.6, MCV 92.7, MCH 31.5, MCHC 34.0, RDW Std Deviation 43.8, RDW Coeff of Filemon 12.8, Plt Count 141 L, MPV 11.0, Immature Gran % (Auto) 1.900 H, Neut % (Auto) 78.2 H, Lymph % (Auto) 12.7 L, [place] % (Auto) 6.0, Eos % (Auto) 0.9, Baso % (Auto) 0.3, Absolute Neuts (auto) 7.6, Absolute Lymphs (auto) 1.23, Nucleated RBC % 0, Syphilis Total Ab Non-reactive, Blood Type B POSITIVE, Antibody Screen NEGATIVE 08/07/24 06:35: WBC 9.6, RBC 3.87 L, Hgb 12.1, Hct 36.5 L, MCV 94.3, MCH 31.3, MCHC 33.2, RDW Std Deviation 44.5 H, RDW Coeff of Filemon 12.9, Plt Count 142 L, MPV 10.8 Physical Exam Const alert and no apparent distress Constitutional Narrative: infant General Appearance: comfortable Resp normal respiratory effort GI soft to palpation and non-distended GI Narrative: ATTP, dressing with minimal shadowing and intact Extremity normal to inspection and no calf tenderness Assessment & Plan (1) Delivery by section: PLAN: Patient is postop day 1 from a repeat section. Routine postoperative care. Anticipate discharge tomorrow.
[2024-08-07 08:00] VITALS: BP 102/73; PULSE 80; RESP 16; TEMP 36.1
[2024-08-07] MEDS: Senna/Docusate Sodium 1 Tablet PO (09:11)
[2024-08-07 14:30] VITALS: BP 109/83; PULSE 75; RESP 16; TEMP 36.2
[2024-08-07] MEDS: Ibuprofen 600 MG Tablet PO ×2 (14:46→20:48)
[2024-08-07 20:50] VITALS: BP 109/78; PULSE 89; RESP 16; TEMP 36.7; O2SAT 98
[2024-08-08] MEDS: Acetaminophen 500 MG Tablet 1000 MG PO ×2 (00:41→09:07)
[2024-08-08] MEDS: Ibuprofen 600 MG Tablet PO ×2 (02:47→09:06)
[2024-08-08 02:50] VITALS: BP 113/86; PULSE 78; RESP 16; TEMP 36.6; O2SAT 98
[2024-08-08] MEDS: DiphenhydrAMINE 25 MG Capsule PO (02:57)
--- NOTE | 2024-08-08 06:48 | PCM.PN.OB ---
Subjective Subjective Doing well. Ambulating and voiding without difficulty. Mild lochia. Breast feeding. Objective Data Objective Data Vital Signs: Vital Signs Temp Pulse Resp BP Pulse Ox O2 Del Method 97.8 F 78 16 113/86 H 98 Room Air 08/08/24 02:50 08/08/24 02:50 08/08/24 02:50 08/08/24 02:50 08/08/24 02:50 08/08/24 02:50 Oxygen Delivery Method Room Air Weight: 64.41 kg Body Mass Index (BMI) 28.6 Intake & Output: Intake and Output for Last 24 Hours 08/06/24 08/07/24 08/08/24 23:59 23:59 23:59 Intake Total 1270 / 1270 Output Total 1999 / 1999 1200 / 1200 Balance -730 / -730 -1200 / -1200 Lab / Micro Data 08/07/24 06:35 Labs: Laboratory Results - last 24 hr 08/07/24 06:35: WBC 9.6, RBC 3.87 L, Hgb 12.1, Hct 36.5 L, MCV 94.3, MCH 31.3, MCHC 33.2, RDW Std Deviation 44.5 H, RDW Coeff of Filemon 12.9, Plt Count 142 L, MPV 10.8 ROS Constitutional Constitutional: Denies headache(s) Cardiovascular Cardiovascular: Denies chest pain or dyspnea Gastrointestinal Gastrointestinal: Denies nausea or vomiting Genitourinary Genitourinary: Denies dysuria Physical Exam Const alert, oriented x3 and no apparent distress General Appearance: cooperative and comfortable Eyes PERRL and EOMs intact bilaterally Resp normal respiratory effort GI soft to palpation and non-tender GI Narrative: soft, moderate distention, fundus firm, appropriately tender. Abdominal bandage clean dry and intact Uterus Palpation: uterus fundus firm ( below umbilicus) Extremity normal to inspection and full ROM Neuro oriented x3 and CN's II-XII intact bilaterally Psych mental status grossly normal Assessment & Plan (1) Delivery by section: PLAN: Plan Discharge home
--- NOTE | 2024-08-08 06:49 | PCM.DC.SUM ---
Providers Date of Admission: 08/06/24 Date of Discharge: 08/08/24 Primary Care Physician: KAYODE Urbano Reason For Visit: REPEAT C SECTION Diagnosis Discharge Diagnosis (1) Delivery by section: Status: Acute Plan Discharge home Medications at Discharge Home Medications vits,calcium no.78-iron fumarate-folic acid 29 mg-1 mg tablet 1 tab PO DAILY 11/18/19 acetaminophen 500 mg tablet 1,000 mg (2 x 500 mg) PO Q6H PRN pain #30 tabs 08/08/24 ibuprofen 600 mg tablet 600 mg PO Q6H PRN pain #30 tabs 08/08/24 Hospital Course Operations section Procedures None Summary of Care Provided Minutes Spent on Discharge: 20 Hospital Course: Scheduled repeat . Uncomplicated delivery and . Breast feeding Physical Exam Const alert General Appearance: cooperative GI GI Narrative: soft, moderate distention, fundus firm, appropriately tender. Abdominal bandage clean dry and intact Weight / BMI Weight Weight: 64.41 kg Body Mass Index (BMI) 28.6 ABG / Lab / Microbiology Data 08/07/24 06:35 Laboratory: Laboratory Results - last 24 hr 08/07/24 06:35: WBC 9.6, RBC 3.87 L, Hgb 12.1, Hct 36.5 L, MCV 94.3, MCH 31.3, MCHC 33.2, RDW Std Deviation 44.5 H, RDW Coeff of Filemon 12.9, Plt Count 142 L, MPV 10.8 D/C Instructions Discharge Diet: No restrictions May resume sexual activity in: 4-6 weeks Lifting Restrictions: 20 pounds Additional Activity Instructions: Nothing in the vagina for 4-6 weeks. You may return to work/school in 6 weeks. Call your doctor if your incision/area has: Continuous Slow Oozing, Sudden Increased Bleeding, Increased Pain/ Swelling, Increased Redness and Foul Smelling Discharge Call your doctor if you observe: Fever of 101 or Higher and Using more than 1 pad per hour (for 2 hours) Suture Line Care: Avoid Pulling/Pushing and Avoid Pinching/Bending Cleanse incision/area with: Keep Dressing Clean & Dry DC O2, CPAP, BIPAP Needs Home O2 Discharge instructions: No Please Follow Up With: Oliva Zapata MD When: Call to make an appointment for an incision check in 1-2 [phone]. You will need a post check in 6 weeks. Meaningful Use Info Meaningful Use Meaningful Use Diagnoses (Choose all that apply): None applicable Ischemic Stroke Statin Dosing Therapy Reference: STATIN DOSE THERAPY REFERENCE: * Patients > 75 years receive moderate or high dose statin therapy. * Patients 75 years or YOUNGER should receive HIGH intensity statin dose unless contraindicated. You will be required to document reason for non-treatment if statin daily dose does not meet guidelines. HIGH DOSE STATIN THERAPY DAILY Atorvastatin > than or = to 40 mg Rosuvastatin > than or = to 20 mg Amlodipine + Atorvastatin > than or = to 2.5/40 mg Ezetimibe + Simvastatin 10/80 mg Simvastatin 80mg Discharge Plan Admission Admit Date/Time: 08/06/24 09:58 Primary Reason for Your Visit: repeat Attending Provider: Shirley Mcdonough Primary Care Provider: Ca Reed NP Discharge Orders/Prescriptions Prescriptions: New ibuprofen 600 mg Tablet 600 mg PO Q6H PRN (Reason: pain) Qty: 30 0RF acetaminophen 500 mg Tablet 1,000 mg PO Q6H PRN (Reason: pain) Qty: 30 0RF Continued vit,[id number] 1 TABLET tablet 1 tab PO DAILY Referrals / Follow Up: Ca Reed NP, MARKETING STRATEGY MANAGER-C [Primary Care Provider] - Disposition Disposition (needs filled in before D/C Order can be placed): Home, Self Care
[2024-08-08 08:58] VITALS: BP 109/80; PULSE 90; RESP 16; TEMP 37.3; O2SAT 99
[2024-08-08] MEDS: Senna/Docusate Sodium 1 Tablet PO (09:06)
== END 2024-08-08 12:40 | disposition home or self-care (01) | DRG 788 ==
PROVIDERS: Admitting Provider Obstetrics & Gynecology; PCP Nurse Practitioner Family; Referring Provider Obstetrics & Gynecology; Visit Provider Obstetrics & Gynecology
PROC: 10D00Z1 Extraction of Products of Conception, Low, Open Approach (ICD-10-PCS; CPT 59514; principal; 2024-08-06 11:45)
DX: O34.211 Maternal care for low transverse scar from previous cesarean delivery (principal); N73.6 Female pelvic peritoneal adhesions (postinfective); O99.892 Other specified diseases and conditions complicating childbirth; O69.81X0 Labor and delivery complicated by cord around neck, without compression, not applicable or unspecified; Z37.0 Single live birth; Z3A.39 39 weeks gestation of pregnancy
CPT/HCPCS: 59025; 59050; 85025; 85027; 86780; 86850; 86900; 86901; 88307; A4216; J2405